=== PATIENT | female | born 1975 | race Caucasian/White ===

== ENCOUNTER 2016-09-10 14:00 | Emergency (ER) | payer BC, MEDICAID ==
[2016-09-10 14:40] VITALS: BP 137/93; PULSE 68; RESP 16; TEMP 98.6; O2SAT 97
--- NOTE | 2016-09-10 14:52 | UCPHY ---
[id number] 4d 09/10/16 14:48 HPI/ROS: HPI: 40-year-old female presents to urgent care with chief concern right 5th toe pain and deformity after she stubbed it on a piece of fracture at home 2 hours ago. Did not fall or incur other injury. Reports 8/10 discomfort with certain movements of the right 5th toe. No weakness, numbness, or tingling. Review of Systems: Constitutional: no fever, chills, fatigue Eyes: No visual changes ENT: No sore throat, dysphagia, runny nose Cardiac: No chest pain GI: no abdominal pain, vomiting, or diahrrea Musculoskeletal: Decreased range of motion, joint and muscle pain Skin: no rashes, abrasions, lacerations Neuro: no numbness, tingling, or weakness. no decreased sensation. (Lisy Isbell) Physical Exam: Vital signs stable, reviewed by me General: Awake, alert, calm, cooperative. No acute distress. Head: Normalocephalic. Atraumatic. EENT: PERRLA. EOMI. Neck: Supple, nontender. No midline tenderness, full ROM. Respiratory: Breathing unlabored. CV: Chest nontender, atraumatic. Distal pulses 2+. Brisk cap refill all extremities. GI: Deferred Neuro: Alert. Oriented x 3. Sensation intact all extremities. Skin: Skin warm, dry, intact. No ecchymosis, abrasions, or lacerations. Extremities: No discomfort to palpation of the right hip, knee, leg, ankle. Full ROM. Right 5th toe deviated medially at the MCP J with discomfort to palpation. (Lisy Isbell) Constitutional: Initial Vital Signs Temperature (C) 37.0 C 09/10/16 14:23 Heart Rate 68 09/10/16 14:23 Respiratory Rate 16 09/10/16 14:23 Blood Pressure 137/93 H 09/10/16 14:23 O2 Sat (%) 97 09/10/16 14:23 O2 Delivery Mode Room Air Allergies/Adverse Reactions: Penicillins Allergy (Verified 09/10/16 14:26) Home Medications: Medication Instructions Recorded Zoloft 50mg (RX) 50 mg PO DAILY 11/09/13 Hydrocodone/APAP 5/325 [[place] 1 tab PO Q4 PRN #10 tab 09/10/16 5/325 (*)] Medical Decision Making - Diagnostics Imaging: Right toe series 3 views 1436 hours. History: Pain right 5th toe following trauma. Findings: There is an oblique fracture mid to distal shaft right 5th toe proximal phalanx with about 2 mm of dorsal and proximal displacement of the distal aspect. The articular surface appears to be intact. No additional fractures are appreciated. Soft tissue swelling is evident. Impression: 1. Oblique fracture mid to distal shaft right 5th toe proximal phalanx with about 2 mm of proximal dorsal displacement distal aspect. Dictated By: Diego Macario MD (Lisy Isbell) ED Course/Re-evaluation: Toe reduction: Toe was manually reduced without local anesthesia. Reduction was successful. Patient tolerated the procedure. 2 x 2 placed between 4th and 5th toes of the right foot, toes marcelo-taped. Postop shoe placed. Neurovascular status intact after application. Patient has her own crutches that she is using. She was instructed in use of these. Dr. Reyna of Orthopedics was consulted. This patient will follow up in his office within the next couple of days. (Lisy Isbell) Urgent Care PA supervision Physician documentation: The patient was evaluated and managed by the physician export sales assistant. My co- signature indicates that I have reviewed this chart and I agree with the findings and plan of care as documented. I am the secondary supervising physician. (Félix Lopez) Differential Diagnosis: Differential diagnosis includes but is not limited to dislocation, fracture ( Lisy Isbell) Departure - Departure Disposition: Home, Routine, Self-Care Clinical Impression: Toe fracture, right Condition: Good Instructions: Toe Fracture (ED) Additional Instructions: Plan: Use crutches and postop shoe while up and about, minimize weight-bearing so that there is no pain with ambulation You may use 600 mg of ibuprofen every 6 hours for fever, inflammation, or pain. Always take ibuprofen with food and stay well hydrated while taking. Do not exceed the maximum allowable dose in a 24 hour period which is 2400 mg. ice every 1-2 hours for 20 minutes for the the next 2-3 days Keep elevated while at rest 1 [place] every 4 hours as needed for severe pain--Never drink or drive while taking this medication. This medication impairs decision making capacity so do not work or sign important documents while taking. This medication its constipating so drink plenty of fluids and consider an [id number] stool softener such as docusate sodium (Colace) while taking this medication. This medication has addictive properties. You should use the least amount for the shortest amount of time. [facility] do not refill narcotic pain medication prescriptions. This is a hospital policy. You will need to follow up as indicated for recheck for further narcotic refills. Follow up with Dr. Reyna of Orthopedics within the next 2-3 days--When you call to schedule appointment, please let the office know you are an "ER follow up" appointment" Referrals: Leticia Licea MD [Primary Care Provider] - As per Instructions Kathy Reyna MD [Medical Doctor] - As per Instructions Prescriptions: Hydrocodone/APAP 5/325 [[place] 5/325 (*)] 1 tab PO Q4 PRN #10 tab PRN Reason: Severe pain - PQRS PQRS Measurement: Not applicable (Lisy Isbell)
--- NOTE | 2016-09-10 15:03 | DX ---
Right toe series 3 views 1436 hours. History: Pain right 5th toe following trauma. Findings: There is an oblique fracture mid to distal shaft right 5th toe proximal phalanx with about 2 mm of dorsal and proximal displacement of the distal aspect. The articular surface appears to be in tact. No additional fractures are appreciated. Soft tissue swelling is evident. Impression: 1. Oblique fracture mid to distal shaft right 5th toe proximal phalanx with about 2 mm of proximal do rsal displacement distal aspect.
== END 2016-09-10 15:55 | disposition home or self-care (01) ==
LOC: CED 14:00
PROC: 0QSQXZZ Reposition Right Toe Phalanx, External Approach (ICD-10-PCS; principal; 2016-09-10)
DX: S92.511A Displaced fracture of proximal phalanx of right lesser toe(s), initial encounter for closed fracture (principal); W22.03XA Walked into furniture, initial encounter; Y92.019 Unspecified place in single-family (private) house as the place of occurrence of the external cause; Y99.8 Other external cause status
CPT/HCPCS: 73660-PO; G0463-PO

== ENCOUNTER → 2017-01-14 | Outpatient (CLI) | payer MEDICAID | LOC: CIMAGING 08:12 | DX: Z12.31 Encounter for screening mammogram for malignant neoplasm of breast (principal) | CPT/HCPCS: G0202 ==

== ENCOUNTER → 2018-02-15 | Outpatient (CLI) | payer MEDICAID | LOC: CIMAGING 08:44 | DX: Z12.31 Encounter for screening mammogram for malignant neoplasm of breast (principal) ==

== ENCOUNTER → 2018-03-15 | Outpatient (CLI) | payer MEDICAID ==
[~2018-03-15] MED LIST: GADOBUTROL 10 ML VIAL IVP ONE
== END ==
LOC: FIMAGING 06:52
PROVIDERS: ATTEND Family Medicine
DX: R92.8 Other abnormal and inconclusive findings on diagnostic imaging of breast (principal)
CPT/HCPCS: 0159T; 77059; A9585; C8908

== ENCOUNTER → 2019-02-19 | Outpatient (CLI) | payer MEDICAID | LOC: CIMAGING 08:05 ==